=== PATIENT | male | born 1965 | race Caucasian/White ===

== ENCOUNTER 2017-08-20 11:27 | Emergency (ER) | payer MEDICAID ==
[~2017-08-20] VITALS: Ht 182.9 cm; Wt 147.4 kg
[2017-08-20 13:23] VITALS: BP 130/87
[2017-08-20] MEDS ORDERED: cefTRIAXone SOD 1,000 MG VL IM ONE ×2 (14:00)
== END 2017-08-20 14:28 | disposition home or self-care (01) ==
LOC: ER 11:37
DX: J03.90 Acute tonsillitis, unspecified (principal); I88.9 Nonspecific lymphadenitis, unspecified
CPT/HCPCS: 96372; 99283; J0696